=== PATIENT | male | born 1965 | race African-American/Black ===

== ENCOUNTER → 2017-03-27 | Outpatient (CLI) | payer MEDICARE ==
[2017-03-27 13:14] LABS: EOS # 0.3 (0.04-0.40); EOS % 4.5 % (0.0-4.0); HEMATOCRIT 42.5 % (42.0-52.0); HEMOGLOBIN 14.2 g/dL (13.5-18.0); LYMPH# 1.8 (1.50-4.00); MEAN CELL VOLUME 90 fl (78-100); MEAN CORPUSCULAR HEMOGLOBIN 30 pg (27-31); MEAN CORPUSCULAR HGB CONC 33 g/dL (33-37); MEAN PLATELET VOLUME 8.1 fl (7.4-10.4); MONO # 0.7 (0.20-0.80); NEU # 3.8 (1.40-6.50); PLATELET COUNT 360 K/mm3 (130-400); RED BLOOD COUNT 4.71 M/mm3 (4.20-5.60); RED CELL DISTRIBUTION WIDTH 13.8 % (11.5-14.5); WHITE BLOOD COUNT 6.6 K/mm3 (4.8-10.8)
[2017-03-27 13:49] LABS: ALBUMIN 3.9 g/dL (3.5-5.0); BUN/CREATININE RATIO 12.7 (6.0-26.0); CALCIUM 10.2 mg/dL (8.4-10.2); POTASSIUM 4.4 mmol/L (3.6-5.0); TOTAL BILIRUBIN 0.5 mg/dL (0.2-1.3); TOTAL PROTEIN 7.3 g/dL (6.3-8.2)
[2017-03-27 14:16] LABS: ERYTHROCYTE SEDIMENTATION RATE 6 mm/hr (0-20)
== END ==
LOC: RAD 12:47
PROVIDERS: Internal Medicine
DX: G40.909 Epilepsy, unspecified, not intractable, without status epilepticus (principal); K90.89 Other intestinal malabsorption; E78.2 Mixed hyperlipidemia; Z12.5 Encounter for screening for malignant neoplasm of prostate; Z12.11 Encounter for screening for malignant neoplasm of colon; C34.90 Malignant neoplasm of unspecified part of unspecified bronchus or lung

== ENCOUNTER → 2017-11-20 | Outpatient (CLI) | payer MEDICARE ==
[2017-11-20 11:59] LABS: EOS # 0.3 (0.04-0.40); EOS % 3.9 % (0.0-4.0); HEMATOCRIT 42.5 % (42.0-52.0); HEMOGLOBIN 13.8 g/dL (13.5-18.0); LYMPH# 1.7 (1.50-4.00); MEAN CELL VOLUME 91 fl (78-100); MEAN CORPUSCULAR HEMOGLOBIN 30 pg (27-31); MEAN CORPUSCULAR HGB CONC 33 g/dL (33-37); MEAN PLATELET VOLUME 8.2 fl (7.4-10.4); MONO # 0.8 (0.20-0.80); NEU # 3.9 (1.40-6.50); PLATELET COUNT 402 K/mm3 (130-400); RED BLOOD COUNT 4.65 M/mm3 (4.20-5.60); RED CELL DISTRIBUTION WIDTH 13.9 % (11.5-14.5); WHITE BLOOD COUNT 6.6 K/mm3 (4.8-10.8)
[2017-11-20 12:07] LABS: ALBUMIN 3.9 g/dL (3.5-5.0); CALCIUM 8.8 mg/dL (8.4-10.2); POTASSIUM 4.6 mmol/L (3.6-5.0); TOTAL BILIRUBIN 0.3 mg/dL (0.2-1.3); TOTAL PROTEIN 7.9 g/dL (6.3-8.2)
[2017-11-20 13:18] LABS: ERYTHROCYTE SEDIMENTATION RATE 26 mm/hr (0-20)
== END ==
LOC: LAB 10:47
PROVIDERS: Internal Medicine
DX: G40.909 Epilepsy, unspecified, not intractable, without status epilepticus (principal); E78.5 Hyperlipidemia, unspecified; K90.9 Intestinal malabsorption, unspecified

== ENCOUNTER → 2017-12-06 | Outpatient (CLI) | payer MEDICARE | LOC: LAB 15:10 | PROVIDERS: Internal Medicine | DX: G40.909 Epilepsy, unspecified, not intractable, without status epilepticus (principal); K90.89 Other intestinal malabsorption; E78.5 Hyperlipidemia, unspecified; C34.90 Malignant neoplasm of unspecified part of unspecified bronchus or lung ==

== ENCOUNTER → 2018-05-23 | Outpatient (CLI) | payer MEDICARE ==
[2018-05-23 15:38] LABS: EOS # 0.3 (0.04-0.40); EOS % 3.9 % (0.0-4.0); HEMATOCRIT 43.9 % (42.0-52.0); HEMOGLOBIN 14.4 g/dL (13.5-18.0); LYMPH# 2.1 (1.50-4.00); MEAN CELL VOLUME 92 fl (78-100); MEAN CORPUSCULAR HEMOGLOBIN 30 pg (27-31); MEAN CORPUSCULAR HGB CONC 33 g/dL (33-37); MEAN PLATELET VOLUME 8.2 fl (7.4-10.4); MONO # 0.9 (0.20-0.80); NEU # 4.7 (1.40-6.50); PLATELET COUNT 352 K/mm3 (130-400); RED BLOOD COUNT 4.79 M/mm3 (4.20-5.60); RED CELL DISTRIBUTION WIDTH 13.8 % (11.5-14.5); WHITE BLOOD COUNT 8.1 K/mm3 (4.8-10.8)
[2018-05-23 15:57] LABS: ALBUMIN 4.2 g/dL (3.5-5.0); CALCIUM 9.6 mg/dL (8.4-10.2); POTASSIUM 5.2 mmol/L (3.6-5.0); TOTAL BILIRUBIN 0.3 mg/dL (0.2-1.3); TOTAL PROTEIN 8.2 g/dL (6.3-8.2)
== END ==
LOC: LAB 15:22 → RAD 15:22
PROVIDERS: Internal Medicine
DX: J47.9 Bronchiectasis, uncomplicated (principal); R91.8 Other nonspecific abnormal finding of lung field; J43.9 Emphysema, unspecified; K90.9 Intestinal malabsorption, unspecified; G40.909 Epilepsy, unspecified, not intractable, without status epilepticus; C34.90 Malignant neoplasm of unspecified part of unspecified bronchus or lung

== ENCOUNTER → 2018-07-16 | Outpatient (CLI) | payer MEDICARE ==
[2018-07-16 16:49] LABS: EOS # 0.2 (0.04-0.40); EOS % 3.1 % (0.0-4.0); HEMATOCRIT 44.3 % (42.0-52.0); HEMOGLOBIN 14.4 g/dL (13.5-18.0); LYMPH# 1.9 (1.50-4.00); MEAN CELL VOLUME 90 fl (78-100); MEAN CORPUSCULAR HEMOGLOBIN 29 pg (27-31); MEAN CORPUSCULAR HGB CONC 33 g/dL (33-37); MEAN PLATELET VOLUME 8.1 fl (7.4-10.4); MONO # 0.7 (0.20-0.80); NEU # 4.1 (1.40-6.50); PLATELET COUNT 348 K/mm3 (130-400); RED CELL DISTRIBUTION WIDTH 13.9 % (11.5-14.5); WHITE BLOOD COUNT 7.1 K/mm3 (4.8-10.8)
[2018-07-16 17:20] LABS: ALBUMIN 4.6 g/dL (3.5-5.0); CALCIUM 9.4 mg/dL (8.4-10.2); POTASSIUM 4.6 mmol/L (3.6-5.0); TOTAL BILIRUBIN 0.4 mg/dL (0.2-1.3); TOTAL PROTEIN 8.6 g/dL (6.3-8.2)
[2018-07-16 18:10] LABS: ERYTHROCYTE SEDIMENTATION RATE 15 mm/hr (0-20)
[2018-07-16 18:39] LABS: PHENYTOIN (DILANTIN) 12.5 ug/mL (10.0-20.0)
[2018-07-19 11:45] LABS: LAMOTRIGINE, SERUM 17.3 mcg/mL (()); LEVETIRACETAM (KEPPRA) 31.5 mcg/mL (())
== END ==
LOC: LAB 16:28
PROVIDERS: Internal Medicine
DX: E78.2 Mixed hyperlipidemia (principal); G40.909 Epilepsy, unspecified, not intractable, without status epilepticus; C34.90 Malignant neoplasm of unspecified part of unspecified bronchus or lung; K90.89 Other intestinal malabsorption

== ENCOUNTER → 2018-08-06 | Outpatient (CLI) | payer MEDICARE | LOC: LAB 13:58 | DX: G40.909 Epilepsy, unspecified, not intractable, without status epilepticus (principal) ==

== ENCOUNTER → 2018-10-29 | Outpatient (CLI) | payer MEDICARE | LOC: LAB 14:07 | DX: N52.1 Erectile dysfunction due to diseases classified elsewhere (principal) ==

== ENCOUNTER → 2019-12-02 | Outpatient (CLI) | payer MEDICARE ==
[2019-12-02 09:15] LABS: POTASSIUM 4.3 mmol/L (3.5-5.1)
[2019-12-02 09:16] LABS: CALCIUM 9.1 mg/dL (8.3-10.5)
[2019-12-02 09:19] LABS: TOTAL BILIRUBIN 0.2 mg/dL (0.2-1.2)
[2019-12-02 09:21] LABS: PHENYTOIN (DILANTIN) 6.2 ug/mL (10.0-20.0)
[2019-12-02 09:39] LABS: EOS # 0.2 (0.04-0.40); EOS % 3.1 % (0.0-4.0); HEMATOCRIT 43.9 % (42.0-52.0); HEMOGLOBIN 14.3 g/dL (13.5-18.0); LYMPH# 2.2 (1.50-4.00); MEAN CELL VOLUME 92 fl (78-100); MEAN CORPUSCULAR HEMOGLOBIN 30 pg (27-31); MEAN CORPUSCULAR HGB CONC 33 g/dL (33-37); MEAN PLATELET VOLUME 8.5 fl (7.4-10.4); MONO # 0.7 (0.20-0.80); NEU # 3.4 (1.40-6.50); PLATELET COUNT 369 K/mm3 (130-400); RED CELL DISTRIBUTION WIDTH 13.8 % (11.5-14.5); WHITE BLOOD COUNT 6.5 K/mm3 (4.8-10.8)
[2019-12-02 11:44] LABS: ERYTHROCYTE SEDIMENTATION RATE 10 mm/hr (0-20)
[2019-12-03 04:41] LABS: LAMOTRIGINE, SERUM 13.22 ug/mL (())
[2019-12-03 17:32] LABS: VITAMIN D 1,25 DIHYDROXY 40.7 pg/mL (())
== END ==
LOC: LAB 08:29
PROVIDERS: Internal Medicine
DX: G40.909 Epilepsy, unspecified, not intractable, without status epilepticus (principal); C34.90 Malignant neoplasm of unspecified part of unspecified bronchus or lung; K90.9 Intestinal malabsorption, unspecified; E78.5 Hyperlipidemia, unspecified

== ENCOUNTER → 2021-10-27 | Outpatient (CLI) | payer MEDICARE ==
[2021-10-27 11:49] LABS: BASO # 0.02 K/mm3 (0.02-0.10); EOS # 0.21 K/mm3 (0.04-0.40); EOS % 2.8 % (0.0-4.0); HEMATOCRIT 46.2 % (42.0-52.0); HEMOGLOBIN 15.1 g/dL (13.5-18.0); LYMPH# 2.31 K/mm3 (1.50-4.00); MEAN CELL VOLUME 93 fl (78-100); MEAN CORPUSCULAR HEMOGLOBIN 30 pg (27-31); MEAN CORPUSCULAR HGB CONC 33 g/dL (33-37); MEAN PLATELET VOLUME 8.1 fl (7.4-10.4); NEU # 4.11 K/mm3 (1.40-6.50); PLATELET COUNT 301 K/mm3 (130-400); RED BLOOD COUNT 4.97 M/mm3 (4.20-5.60); RED CELL DISTRIBUTION WIDTH 13.4 % (11.5-14.5); WHITE BLOOD COUNT 7.5 K/mm3 (4.8-10.8)
[2021-10-27 12:00] LABS: ALBUMIN 4.3 g/dL (3.5-5.0)
[2021-10-27 12:01] LABS: POTASSIUM 4.7 mmol/L (3.5-5.1)
[2021-10-27 12:02] LABS: CALCIUM 9.5 mg/dL (8.3-10.5)
[2021-10-27 12:03] LABS: TOTAL PROTEIN 7.8 g/dL (6.4-8.3)
[2021-10-27 12:05] LABS: TOTAL BILIRUBIN 0.3 mg/dL (0.2-1.2)
[2021-10-29 04:13] LABS: LEVETIRACETAM (KEPPRA) 30 ug/mL (5-45)
[2021-10-29 04:18] LABS: LAMOTRIGINE, SERUM 15.48 ug/mL (())
== END ==
LOC: LAB 11:35
PROVIDERS: Internal Medicine
DX: C34.90 Malignant neoplasm of unspecified part of unspecified bronchus or lung (principal); K90.9 Intestinal malabsorption, unspecified
CPT/HCPCS: Q9967

== ENCOUNTER → 2022-01-09 | Outpatient (CLI) | payer MEDICARE | LOC: RAD 16:05 | DX: C80.1 Malignant (primary) neoplasm, unspecified (principal); C79.31 Secondary malignant neoplasm of brain; Z98.890 Other specified postprocedural states | CPT/HCPCS: A9575 ==

== ENCOUNTER → 2023-02-02 | Outpatient (CLI) | payer MEDICARE ==
[2023-02-02 12:08] LABS: BASO # 0.02 K/mm3 (0.02-0.10); EOS # 0.22 K/mm3 (0.04-0.40); EOS % 3.3 % (0.0-4.0); HEMATOCRIT 44.7 % (42.0-52.0); HEMOGLOBIN 14.5 g/dL (13.5-18.0); LYMPH# 1.84 K/mm3 (1.50-4.00); MEAN CELL VOLUME 94 fl (78-100); MEAN CORPUSCULAR HEMOGLOBIN 31 pg (27-31); MEAN CORPUSCULAR HGB CONC 32 g/dL (33-37); MEAN PLATELET VOLUME 8.1 fl (7.4-10.4); MONO # 0.64 K/mm3 (0.20-0.80); NEU # 3.86 K/mm3 (1.40-6.50); PLATELET COUNT 287 K/mm3 (130-400); RED BLOOD COUNT 4.74 M/mm3 (4.20-5.60); RED CELL DISTRIBUTION WIDTH 13.9 % (11.5-14.5); WHITE BLOOD COUNT 6.6 K/mm3 (4.8-10.8)
[2023-02-02 12:15] LABS: ALBUMIN 4.1 g/dL (3.5-5.0); POTASSIUM 5.2 mmol/L (3.5-5.1)
[2023-02-02 12:16] LABS: CALCIUM 9.3 mg/dL (8.3-10.5)
[2023-02-02 12:18] LABS: TOTAL PROTEIN 7.6 g/dL (6.4-8.3)
[2023-02-02 12:19] LABS: TOTAL BILIRUBIN 0.3 mg/dL (0.2-1.2)
[2023-02-02 12:24] LABS: MAGNESIUM 2.2 mg/dL (1.60-2.60)
== END ==
LOC: LAB 11:53
PROVIDERS: Internal Medicine
DX: G40.909 Epilepsy, unspecified, not intractable, without status epilepticus (principal); K90.9 Intestinal malabsorption, unspecified

== ENCOUNTER → 2024-05-06 | Outpatient (CLI) | payer MEDICARE ==
[2024-05-06 13:07] LABS: BASO # 0.02 K/mm3 (0.02-0.10); EOS # 0.06 K/mm3 (0.04-0.40); EOS % 0.7 % (0.0-4.0); HEMOGLOBIN 12.2 g/dL (13.5-18.0); LYMPH# 1.13 K/mm3 (1.50-4.00); MEAN CELL VOLUME 94 fl (78-100); MEAN CORPUSCULAR HEMOGLOBIN 30 pg (27-31); MEAN CORPUSCULAR HGB CONC 32 g/dL (33-37); MEAN PLATELET VOLUME 8.1 fl (7.4-10.4); MONO # 0.78 K/mm3 (0.20-0.80); NEU # 6.25 K/mm3 (1.40-6.50); PLATELET COUNT 360 K/mm3 (130-400); RED BLOOD COUNT 4.04 M/mm3 (4.20-5.60); RED CELL DISTRIBUTION WIDTH 12.6 % (11.5-14.5); WHITE BLOOD COUNT 8.3 K/mm3 (4.8-10.8)
[2024-05-06 13:16] LABS: CALCIUM 9.5 mg/dL (8.3-10.5)
[2024-05-06 13:17] LABS: TOTAL PROTEIN 7.7 g/dL (6.4-8.3)
[2024-05-06 13:19] LABS: TOTAL BILIRUBIN 0.4 mg/dL (0.2-1.2)
[2024-05-07 00:06] LABS: LYME DISEASE EIA Negative (Negative)
== END ==
LOC: LAB 12:26
PROVIDERS: Internal Medicine
DX: G93.41 Metabolic encephalopathy (principal)

== ENCOUNTER → 2024-08-11 | Outpatient (CLI) | payer MEDICARE ==
[2024-08-11 16:19] LABS: BASO # 0.01 K/mm3 (0.02-0.10); EOS # 0.11 K/mm3 (0.04-0.40); EOS % 0.9 % (0.0-4.0); HEMATOCRIT 42.1 % (42.0-52.0); HEMOGLOBIN 13.3 g/dL (13.5-18.0); LYMPH# 1.82 K/mm3 (1.50-4.00); MEAN CELL VOLUME 93 fl (78-100); MEAN CORPUSCULAR HEMOGLOBIN 29 pg (27-31); MEAN CORPUSCULAR HGB CONC 32 g/dL (33-37); MEAN PLATELET VOLUME 8.3 fl (7.4-10.4); MONO # 0.96 K/mm3 (0.20-0.80); NEU # 8.66 K/mm3 (1.40-6.50); PLATELET COUNT 289 K/mm3 (130-400); RED BLOOD COUNT 4.55 M/mm3 (4.20-5.60); RED CELL DISTRIBUTION WIDTH 13.8 % (11.5-14.5); WHITE BLOOD COUNT 11.6 K/mm3 (4.8-10.8)
[2024-08-11 16:25] LABS: ALBUMIN 4.4 g/dL (3.5-5.0)
[2024-08-11 16:26] LABS: CALCIUM 9.6 mg/dL (8.3-10.5)
[2024-08-11 16:28] LABS: TOTAL PROTEIN 8.4 g/dL (6.4-8.3)
[2024-08-11 16:30] LABS: TOTAL BILIRUBIN 0.5 mg/dL (0.2-1.2)
== END ==
LOC: LAB 15:53
PROVIDERS: Family Medicine
DX: R05.9 Cough, unspecified (principal)